=== PATIENT | male | born 1945 | race Caucasian/White ===

== ENCOUNTER 2017-05-17 11:01 | Emergency (ER) | payer MEDICARE, BC ==
[2017-05-17 11:24] LABS: URINE APPEARANCE SL CLOUDY; URINE BILIRUBIN NEGATIVE (NEGATIVE); URINE BLOOD LARGE (NEGATIVE); URINE COLOR YELLOW; URINE GLUCOSE (UA) NEGATIVE (NEGATIVE); URINE KETONE NEGATIVE (NEGATIVE); URINE LEUKOCYTE ESTERASE LARGE (NEGATIVE); URINE NITRITE NEGATIVE (NEGATIVE); URINE UROBILINOGEN 0.2 E.U./dL (0.20 - 1.00)
--- NOTE | 2017-05-17 11:24 | Emergency Department Record ---
History of Present Illness - General Chief complaint: Male Urogenital Problem Stated complaint: UTI Time Seen by Provider: 05/17/17 11:19 Source: Patient Mode of Arrival: Ambulatory Limitations: No limitations - History of Present Illness Initial comments: 71 yo male presents to ED with a CC of "burning with urination" that began last6 night, worse this morning. Patient reports similar symptoms related to a urinary tract infection diagnosed 1 year ago. Patient denies fevers, chills, nausea, vomiting, or flank pain symptoms. Patient denies history of kidney stones. MD Complaint: Dysuria Onset/Timin -: Days(s) Location: Penis Radiation: None Severity: Moderate Severity scale (1-10): 2 Quality: Aching Consistency: Constant Improves with: None Worsens with: None Reports: Denies other symptoms - Related Data Home Medications Medication Instructions Recorded Confirmed Last Taken Aspirin [Aspir 81] 81 mg PO DAILY tab. 10/18/16 05/17/17 1 Day Ago ~05/16/17 Azelastine HCl 205.5 mcg NS BID spray 10/18/16 05/17/17 1 Day Ago ~05/16/17 Diltiazem HCl [Diltiazem 24hr Cd] 360 mg PO QD cap 10/18/16 05/17/17 1 Day Ago ~05/16/17 Ergocalciferol (Vitamin D2) 1,000 unit PO QD tab 10/18/16 05/17/17 1 Day Ago [Vitamin D2] ~05/16/17 Fluticasone/Salmeterol [Advair 1 puff IH BID puff 10/18/16 05/17/17 1 Day Ago 250-50 Diskus] ~05/16/17 Gabapentin 300 mg PO TID ml 10/18/16 05/17/17 1 Day Ago ~05/16/17 Hydrocodone/Acetaminophen 1 tab PO Q6H tab 10/18/16 05/17/17 1 Day Ago [Hydrocodone/Acetaminophen ~05/16/17 7.5mg/325mg] Mometasone Furoate 10 gm MC DAILY 10/18/16 05/17/17 1 Day Ago ~05/16/17 Montelukast Sodium [Singulair] 10 mg PO QD tab 10/18/16 05/17/17 1 Day Ago ~06/16/17 Olmesartan Medoxomil [Benicar] 20 mg PO QD tab 10/18/16 05/17/17 1 Day Ago ~05/16/17 [place]-3 Fatty Acids [Fish Oil] 500 mg PO QD #2 cap 10/18/16 05/17/17 1 Day Ago ~05/16/17 Omeprazole 40 mg PO QD cap 10/18/16 05/17/17 1 Day Ago ~05/16/17 Pravastatin Sodium 40 mg PO QD tab 10/18/16 05/17/17 1 Day Ago ~05/16/17 Previous Rx's Medication Instructions Recorded Ciprofloxacin HCl [Cipro] 500 mg PO Q12HR #14 tablet 05/17/17 Allergies Allergy/AdvReac Type Severity Reaction Status Date / Time No Known Allergies Allergy Unverified 10/18/16 08:08 Travel Screening - Travel/Exposure Within Last 30 Days Have you traveled within the last 30 days?: No - Travel/Exposure Within Last Year Have you traveled outside the [place] in the last year?: No - Additonal Travel Details Have you been exposed to anyone with a communicable illness?: No - Travel Symptoms Symptom Screening: None Review of Systems Constitutional: Denies: Chills, Fever, Malaise, Night sweats Eyes: Denies: Eye discharge, Eye pain ENT: Denies: Congestion, Ear pain, Epistaxis Respiratory: Denies: Cough, Dyspnea Cardiovascular: Denies: Chest pain, Dyspnea on exertion Endocrine: Denies: Fatigue, Heat or cold intolerance Gastrointestinal: Denies: Abdominal pain, Nausea, Vomiting Genitourinary: Reports: Dysuria. Denies: Incontinence, Retention Musculoskeletal: Denies: Arthralgia, Back pain, Gout, Joint swelling Skin: Denies: Bruising, Change in color Neurological: Denies: Abnormal gait, Confusion, Headache, Seizure Psychiatric: Denies: Anxiety Hematological/Lymphatic: Denies: Anemia, Blood Clots Past Medical History - SOCIAL HISTORY Smoking Status: Never smoker Alcohol Use: None Drug Use: None - RESPIRATORY Hx Respiratory Disorders: Yes Hx Asthma: Yes Hx Bronchitis: Yes (10/2014 flu and bronchitis) Comment:: has dry cough - CARDIOVASCULAR Hx Cardio Disorders: Yes Hx Hypertension: Yes (meds good control) Comment:: hx of ASHD-on meds - NEURO Hx Neuro Disorders: No - GI Hx GI Disorders: Yes Hx Reflux: Yes (on omeprazole) Hx of Polyps: Yes - Hx Genitourinary Disorders: Yes Hx Prostate Problems: Yes (BPH) - ENDOCRINE Hx Diabetes: No Hx Thyroid Disease: No - MUSCULOSKELETAL Hx Musculoskeletal Disorders: Yes Hx Arthritis: Yes - HEMATOLOGY/ONCOLOGY Hx Hematology/Oncology Disorders: Yes Hx Cancer: Yes (basal cell -back) Family Medical History Any Significant Family History?: No Physical Exam - General General Appearance: Alert, Oriented x3, Cooperative, No acute distress, Other ( readina book on examination, well appearing) Limitations: No limitations - Head Head exam: Atraumatic, Normocephalic, Normal inspection Head exam detail: negative: Abrasion, Contusion, Vargas's sign, General tenderness, Hematoma, Laceration - Eye Eye exam: Normal appearance. negative: Conjunctival injection, Periorbital swelling, Periorbital tenderness, Scleral icterus - ENT Ear exam: Other (hearing aids in place). negative: Auricular hematoma, Auricular trauma Nasal Exam: negative: Active bleeding, Discharge, Dried blood, Foreign body Mouth exam: negative: Drooling, Laceration, Muffled voice, Tongue elevation - Neck Neck exam: Normal inspection. negative: Meningismus, Tenderness - Respiratory Respiratory exam: Normal lung sounds bilaterally. negative: Rales, Respiratory distress, Rhonchi, Stridor - Cardiovascular Cardiovascular Exam: Regular rate, Normal rhythm, Normal heart sounds - GI/Abdominal GI/Abdominal exam: Soft. negative: Rebound, Rigid, Tenderness - Rectal Rectal exam: Deferred - exam: Deferred - Extremities Extremities exam: Normal inspection. negative: Calf tenderness, Pedal edema, Tenderness - Back Back exam: Denies: CVA tenderness (R), CVA tenderness (L) - Neurological Neurological exam: Alert, Normal gait, Oriented X3 - Psychiatric Psychiatric exam: Normal affect, Normal mood - Skin Skin exam: Normal color. negative: Abrasion Type of lesion: negative: abrasion Course Vital Signs 05/17/17 11:03 Temperature 97.7 F Pulse Rate 59 L Respiratory 16 Rate Blood Pressure 126/60 Pulse Ox 98 - Reevaluation(s) Reevaluation #1: 05/17/17 11:32 UA reviewed and appears c/w infection. Will treat with Cipro with instructions for follow-up in 3-5 days with his PCP. Patient appears stable for discharge at this time. Disposition Disposition: Discharge Clinical Impression: UTI (urinary tract infection) Qualifiers: Urinary tract infection type: acute cystitis Hematuria presence: with hematuria Qualified Code(s): N30.01 - Acute cystitis with hematuria Disposition: Home, Self-Care Condition: (2) Stable Instructions: Dysuria (ED) Additional Instructions: Return to ED if your symptoms worsen or if you have any concerns. Cipro as directed. Follow-up with your family doctor in 3-5 days as directed. Prescriptions: Ciprofloxacin HCl [Cipro] 500 mg PO Q12HR #14 tablet Forms: Patient Portal Access Time of Disposition: 11:36
[2017-05-17 11:31] LABS: URINE BACTERIA 1+; URINE RBC >50 (NONE SEEN)
== END 2017-05-17 11:42 | disposition home or self-care (01) ==
LOC: ER 11:01
DX: N30.01 Acute cystitis with hematuria (principal)
CPT/HCPCS: 81001; 99282